=== PATIENT | male | born 1960 | race Caucasian/White ===

== ENCOUNTER 2017-09-19 16:58 | Emergency (ER) | payer MEDICAID, SELFPAY ==
[~2017-09-19] VITALS: Ht 170.2 cm; Wt 75.0 kg
[2017-09-19] MEDS ORDERED: TETANUS, DIPHTHERIA, PERTUSSIS VAC/PF 0.5ML (>7YR OLD) IM ONE (17:15)
[2017-09-19] MEDS ORDERED: BACITRACIN ZINC OINT UDPKT TOP ONE (17:15)
[2017-09-19] MEDS: LIDOCAINE HCL 1% 20ML VIAL (Pyxis) INJ MC ONE ×2 (17:57→18:00)
[2017-09-19] MEDS ORDERED: LIDOCAINE HCL/PF 1% 10 MG/ML 5ML VIAL IJ ONE (18:00)
[2017-09-19] MEDS ORDERED: ACETAMINOPHEN 325MG TABLET PO ONE (23:00)
[2017-09-20 02:06] VITALS: BP 122/68
== END 2017-09-20 02:15 | disposition home or self-care (01) ==
LOC: ER 16:58
DX: S01.112A Laceration without foreign body of left eyelid and periocular area, initial encounter (principal); V19.88XA Pedal cyclist (driver) (passenger) injured in other specified transport accidents, initial encounter; Y93.89 Activity, other specified; Y92.89 Other specified places as the place of occurrence of the external cause; Y99.8 Other external cause status
CPT/HCPCS: 12013; 70450; 90471; 90715; 99284; J3490; Z7610

== ENCOUNTER 2017-10-01 14:04 | Emergency (ER) | payer MEDICAID ==
[~2017-10-01] VITALS: Ht 162.6 cm; Wt 68.0 kg
[2017-10-01 14:30] VITALS: BP 109/73
== END 2017-10-01 16:36 | disposition home or self-care (01) ==
LOC: ER 14:04
DX: S01.112D Laceration without foreign body of left eyelid and periocular area, subsequent encounter (principal); X58.XXXD Exposure to other specified factors, subsequent encounter
CPT/HCPCS: 99283; Z7610; 99281